=== PATIENT | female | born 2000 | race Caucasian/White ===

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

== ENCOUNTER 2024-01-02 09:50 | Emergency (ER) | payer BC, OTHER ==
[2024-01-02] MEDS: Sodium Chloride 0.9% 1,000 ML IV ONE (10:30)
[2024-01-02] MEDS: Acetaminophen/Butalbital/Caffeine 325-50-40 MG Tab PO ONE (10:30)
[2024-01-02] MEDS: Metoclopramide 10 MG/2 ML SDV IVPUSH ONE (10:31)
[2024-01-02] MEDS: diphenhydrAMINE 50 MG/ML SDV IVPUSH ONE (10:31)
[2024-01-02] MEDS: Ondansetron 4 MG/2 ML SDV IVPUSH ONE (10:31)
[2024-01-02 11:50] VITALS: BP 109/62; PULSE 76
== END 2024-01-02 11:41 | disposition home or self-care (01) ==
LOC: MW.ED 09:50
DX: G43.909 Migraine, unspecified, not intractable, without status migrainosus (principal); Z88.1 Allergy status to other antibiotic agents
CPT/HCPCS: 70450; 96361; 96374; 96375; 99284; A9270; J1200; J2405; J2765; J7030